=== PATIENT | female | born 1990 | race American Indian/Alaskan Native ===

== ENCOUNTER 2017-05-07 06:32 | Emergency (ER) | payer MEDICAID ==
[2017-05-07 02:48] LABS: Anion Gap 19 mmol/L; Basophils % (Auto) 0.2 % (0.0-1.8); Blood Urea Nitrogen 4 mg/dL (7-17); Calcium 8.6 mg/dL (8.4-10.2); Carbon Dioxide 19 mmol/L (22-30); Chloride 103.6 mmol/L (98-107); Eosinophils % (Auto) 1.5 % (0.0-4.3); Glucose 102 mg/dL (65-100); Hematocrit 32.3 % (30.3-42.9); Hemoglobin 10.9 gm/dl (10.1-14.3); Mean Corpuscular HGB Conc 34 % (30-34); Mean Corpuscular Hemoglobin 28 pg (28-32); Mean Corpuscular Volume 83 fl (79-97); Platelet Count 178 K/mm3 (140-440); Potassium 3.3 mmol/L (3.6-5.0); Red Blood Count 3.88 M/mm3 (3.65-5.03); Red Cell Distribution Width 14.1 % (13.2-15.2); Sodium 138 mmol/L (137-145); White Blood Count 10.2 K/mm3 (4.5-11.0)
[2017-05-07 03:45] LABS: Bilirubin,Urine NEG (Negative); Blood,Urine NEG (Negative); Ketones,Urine TR mg/dL (Negative); Leukocyte Esterase,Urine NEG (Negative); Mucus,Urine FEW /HPF; Nitrite,Urine NEG (Negative); Protein,Urine <15 mg/dL mg/dL (Negative); WBC,Urine < 1.0 /HPF (0.0-6.0)
[2017-05-07 05:24] VITALS: BP 109/61
== END 2017-05-07 19:48 | disposition left against medical advice (07) ==
LOC: ED 06:32 → EDSTATUS 06:36 → ED 19:48
DX: O26.891 Other specified pregnancy related conditions, first trimester (principal); R06.02 Shortness of breath; Z53.21 Procedure and treatment not carried out due to patient leaving prior to being seen by health care provider
CPT/HCPCS: 36415; 80048; 81001; 83880; 84484; 84702; 84703; 85025; 93005; 93010